=== PATIENT | male | born 1990 | race Two or more races ===

== ENCOUNTER 2022-11-15 09:51 | Emergency (ER) | payer SELFPAY ==
[2022-11-15 10:06] VITALS: BP 140/81; PULSE 87; RESP 18; TEMP 98.8; BMI 36.6
== END 2022-11-15 13:14 | disposition home or self-care (01) ==
LOC: JER 09:51
DX: U07.1 COVID-19 (principal)
CPT/HCPCS: 0241U-QW; 71046-TC-FY; 87651; 99283-25